=== PATIENT | female | born 1975 | race Caucasian/White ===

== ENCOUNTER 2016-10-17 12:17 | Emergency (ER) | payer OTHER, SELFPAY ==
[2016-10-17 12:28] VITALS: BP 134/79; PULSE 82; RESP 14; TEMP 98.9; O2SAT 99
--- NOTE | 2016-10-17 13:45 | ED PDOC ---
HPI: Back Time Seen by Provider: 10/17/16 12:52 Chief Complaint (Nursing): Back Pain Chief Complaint (Provider): Back pain History Per: Patient History/Exam Limitations: no limitations Onset/Duration Of Symptoms: Days (x1 month), Worse Since (x1 day) Current Symptoms Are (Timing): Still Present Additional Complaint(s): Peyton Beatty is a 41 year old female, with no past medical history, who presents to the emergency department complaining of right sided back pain onset for 1 month associated with a subjective fever. She states symptoms worsened last night which prompted her to take ibuprofen but without any alleviation of symptoms. No further medical complaints. PMD: None provided Past Medical History Reviewed: Historical Data, Nursing Documentation, Vital Signs Vital Signs: Last Vital Signs Temp 98.9 F 10/17/16 12:28 Pulse 82 10/17/16 12:28 Resp 14 10/17/16 12:28 BP 134/79 10/17/16 12:28 Pulse Ox 99 10/17/16 12:28 - Medical History PMH: No Chronic Diseases - Family History Family History: States: Unknown Family Hx - Social History Current smoker - smoking cessation education provided: No Alcohol: None Drugs: Denies - Home Medications Home Medications: Ambulatory Orders Medication Instructions Recorded Cyclobenzaprine [Cyclobenzaprine 10 mg PO Q8H #20 tab 10/17/16 HCl] Ibuprofen [Motrin Tab] 800 mg PO Q6H PRN #20 tab 10/17/16 - Allergies Allergies/Adverse Reactions: Allergies Allergy/AdvReac Type Severity Reaction Status Date / Time No Known Allergies Allergy Verified 06/01/14 09:23 Review of Systems ROS Statement: Except As Marked, All Systems Reviewed And Found Negative Constitutional: Positive for: Fever Musculoskeletal: Positive for: Back Pain (right sided) Physical Exam - Reviewed Nursing Documentation Reviewed: Yes Vital Signs Reviewed: Yes - Physical Exam Appears: Positive for: Well, Non-toxic, No Acute Distress Head Exam: Positive for: ATRAUMATIC, NORMAL INSPECTION, NORMOCEPHALIC Skin: Positive for: Normal Color, Warm, DRY Eye Exam: Positive for: Normal appearance Neck: Positive for: Normal Cardiovascular/Chest: Positive for: Regular Rate, Rhythm Respiratory: Positive for: Normal Breath Sounds. Negative for: Respiratory Distress Back: Positive for: R CVA Tenderness (per spinal muscles), Muscle Spasm. Negative for: Vertebral Tenderness Extremity: Positive for: Normal ROM Neurologic/Psych: Positive for: Alert, Oriented - ECG O2 Sat by Pulse Oximetry: 99 (RA) Pulse Ox Interpretation: Normal Medical Decision Making Medical Decision Making: Initial Impression: Initial Plan: --ED urine dipstick --ED urine --Motrin Tab 600 mg PO --Flexeril 10 mg PO --reevaluation Pt reports feeling better on re-evaluation. Urine normal. Scribe Attestation: Documented by Roger Felix, acting as a scribe for Fide LANGE. Provider Scribe Attestation: All medical record entries made by the Scribe were at my direction and personally dictated by me. I have reviewed the chart and agree that the record accurately reflects my personal performance of the history, physical exam, medical decision making, and the department course for this patient. I have also personally directed, reviewed, and agree with the discharge instructions and disposition. Disposition - Clinical Impression Clinical Impression: Back pain - Patient ED Disposition Is Patient to be Admitted: No Counseled Patient/Family Regarding: Diagnosis, Need For Followup, Rx Given - Disposition Disposition: Routine/Home Disposition Time: 14:21 Condition: GOOD Prescriptions: Cyclobenzaprine [Cyclobenzaprine HCl] 10 mg PO Q8H #20 tab Ibuprofen [Motrin Tab] 800 mg PO Q6H PRN #20 tab PRN Reason: Pain Instructions: Back Pain (ED)
== END 2016-10-17 14:43 | disposition home or self-care (01) ==
LOC: H.ER 12:17
DX: M54.9 Dorsalgia, unspecified (principal)

== ENCOUNTER 2017-08-30 09:57 | Emergency (ER) | payer SELFPAY ==
[2017-08-30 10:14] VITALS: BMI 29.5
[2017-08-30 10:16] VITALS: O2SAT 100
[2017-08-30 11:40] LABS: ALB/GLOB RATIO 1.2 (1.0-2.1); ALBUMIN 4.2 g/dL (3.5-5.0); ALT/SGPT 35 U/L (9-52); AST/SGOT 22 U/L (14-36); BLOOD UREA NITROGEN 10 mg/dl (7-17); GFR AFRICAN-AMERICAN > 60; GFR NON-AFRICAN AMERICAN > 60
--- NOTE | 2017-08-30 11:43 | ED PDOC ---
HPI: Chest Pain Time Seen by Provider: 08/30/17 10:27 Chief Complaint (Nursing): Chest Pain Chief Complaint (Provider): Chest Pain History Per: Patient History/Exam Limitations: no limitations Onset/Duration Of Symptoms: Persistent (x1 month) Current Symptoms Are (Timing): Still Present Additional Complaint(s): 42 year old female presents to the emergency department with a complaint of constant left-sided chest pain radiating to her neck, back and head ongoing for 1 month. She states there are no alleviating or exacerbating factors. Patient denies any cough, hemoptysis, fever, chills, trauma, dyspnea on exertion, leg pain, recent travel or surgery. No history of DVT or PE. PMD: Cruz Chambers MD Past Medical History Reviewed: Historical Data, Nursing Documentation, Vital Signs Vital Signs: Last Vital Signs Temp 97.8 F 08/30/17 10:15 Pulse 64 08/30/17 10:35 Resp 20 08/30/17 10:15 BP 126/87 08/30/17 10:15 Pulse Ox 100 08/30/17 12:31 - Medical History PMH: No Chronic Diseases Denies: Deep Vein Thrombosis, Pulmonary Embolism - Surgical History Surgical History: Denies: No Surg Hx Other surgeries: left breast biopsy - Family History Family History: States: [place] (uncle of [place] at 45 y/o) - Social History Current smoker - smoking cessation education provided: No Ex-Smoker (has not smoked in the last 12 months): No Alcohol: Social Drugs: Denies - Home Medications Home Medications: Ambulatory Orders Medication Instructions Recorded Cyclobenzaprine [Cyclobenzaprine 10 mg PO Q8H #20 tab 10/17/16 HCl] Ibuprofen [Motrin Tab] 800 mg PO Q6H PRN #20 tab 10/17/16 Naproxen [Naprosyn] 500 mg PO BID PRN #10 tab 08/30/17 - Allergies Allergies/Adverse Reactions: Allergies Allergy/AdvReac Type Severity Reaction Status Date / Time No Known Allergies Allergy Verified 06/01/14 09:23 SERGEY Risk Score for UA/NSTEMI - SERGEY Risk Score Age > 64: NO 3 or more CAD Risk Factors: NO Known CAD (Stenosis greater than 50%): NO Aspirin use in past 7 days: NO Severe Angina: NO EKG ST changes greater than 0.5mm: NO Positive Cardiac Marker: NO SERGEY Score: 0 Risk %: 5% Wells Criteria for PE - Wells Criteria for Pulmonary Embolism Clinical Signs and Symptoms of DVT: No P.E is #1 Diagnosis, or Equally Likely: No Heart Rate >100: No Immobilization at least 3 days;Surgery previous 4 weeks: No Previous, objectively diagnosed PE or DVT: No Hemoptysis: No Malignancy w/treatment within 6 months, or palliative: No Total Score: 0 Review of Systems ROS Statement: Except As Marked, All Systems Reviewed And Found Negative Constitutional: Negative for: Fever, Chills Cardiovascular: Positive for: Chest Pain (left-sided). Negative for: Other ( trauma) Respiratory: Negative for: Cough, Hemoptysis, SOB with Exertion Musculoskeletal: Positive for: Neck Pain, Back Pain. Negative for: Leg Pain ( bilaterally) Neurological: Positive for: Headache Physical Exam - Reviewed Nursing Documentation Reviewed: Yes Vital Signs Reviewed: Yes - Physical Exam Appears: Positive for: No Acute Distress Head Exam: Positive for: ATRAUMATIC, NORMAL INSPECTION, NORMOCEPHALIC Skin: Positive for: Normal Color, Warm, Dry. Negative for: Rash Cardiovascular/Chest: Positive for: Regular Rate, Rhythm. Negative for: Chest Non Tender, Murmur Respiratory: Positive for: Normal Breath Sounds. Negative for: Respiratory Distress Gastrointestinal/Abdominal: Positive for: Normal Exam, Soft. Negative for: Tenderness Back: Positive for: Normal Inspection. Negative for: L CVA Tenderness, R CVA Tenderness Neurologic/Psych: Positive for: Alert (x3), Oriented. Negative for: Motor/ Sensory Deficits - Laboratory Results Result Diagrams: 08/30/17 11:23 08/30/17 11:23 Urine POC: Negative - ECG ECG: Positive for: Interpreted By Me ECG Rhythm: Positive for: Sinus Rhythm. Negative for: ST/T Changes Rate: 63 O2 Sat by Pulse Oximetry: 100 (RA) Pulse Ox Interpretation: Normal - Radiology X-Ray: Interpreted by Me (CXR) X-Ray Interpretation: No Acute Disease Medical Decision Making Medical Decision Making: Initial Impression: Chest pain Initial Plan: * EKG * CMP * Troponin I * Urine * CBC * D Dimer * CXR * Aspirin 324mg PO ___ Time: 1220 --Labs: no significant abnormality. Time: 1230 On re-evaluation, pt. in no distress. Resting comfortably. Informed of results and advised to f/u with [facility] for further evaluation but is to return to ED immediately if symptoms worsen. Scribe Attestation: Documented by Avelina Amanda, acting as a scribe for Leonardo Weiss PA-C. Provider Scribe Attestation: All medical record entries made by the Scribe were at my direction and personally dictated by me. I have reviewed the chart and agree that the record accurately reflects my personal performance of the history, physical exam, medical decision making, and the department course for this patient. I have also personally directed, reviewed, and agree with the discharge instructions and disposition. Disposition - Clinical Impression Clinical Impression: Chest pain - Patient ED Disposition Is Patient to be Admitted: No - Disposition Referrals: [facility] [Outside] [facility] [Outside] Disposition: Routine/Home Disposition Time: 12:35 Condition: STABLE Additional Instructions: Follow up with [facility] for further evaluation. Return to ED immediately if symptoms worsen. Prescriptions: Naproxen [Naprosyn] 500 mg PO BID PRN #10 tab PRN Reason: Pain Instructions: Chest Pain (DC) Forms: [employer] (Moroccan) Print Language: NAMIBIAN
[2017-08-30 12:31] LABS: BASO # 0.1 K/uL (0.0-0.2); BASO % 0.8 % (0.0-2.0); EOS # 0.2 K/uL (0.0-0.7); EOS % 3.5 % (0.0-4.0); HEMOGLOBIN 12.6 g/dL (12.0-16.0); LYMPH # 2.3 K/uL (1.0-4.3); LYMPH % 37.3 % (20.0-40.0); MEAN CELL VOLUME 87.3 fl (81.0-99.0); MEAN CORPUSCULAR HEMOGLOBIN 29.7 pg (27.0-31.0); MEAN PLATELET VOLUME 9.6 fl (7.2-11.7); MONO # 0.3 K/uL (0.0-0.8); MONO % 4.8 % (0.0-10.0); NEUT # 3.3 K/uL (1.8-7.0); NEUT % 53.6 % (50.0-75.0); RBC 4.25 Mil/uL (3.80-5.20); RED CELL DISTRIBUTION WIDTH 13.3 % (11.5-14.5); WHITE BLOOD COUNT 6.2 K/uL (4.8-10.8)
[2017-08-30 13:49] VITALS: BP 118/77; PULSE 69; RESP 14; TEMP 97.9
--- NOTE | 2017-08-30 17:10 | RAD ---
HISTORY: chest pain COMPARISON: No prior. TECHNIQUE: Chest PA and lateral FINDINGS: LUNGS: No active pulmonary disease. PLEURA: No significant pleural effusion identified. No pneumothorax apparent. CARDIOVASCULAR: Normal. OSSEOUS STRUCTURES: No significant abnormalities. VISUALIZED UPPER ABDOMEN: Normal. OTHER FINDINGS: None. IMPRESSION: No acute cardiopulmonary disease appreciated.
--- NOTE | 2017-08-31 11:20 | CARD ---
APPROVED REPORT EKG Measurement Heart [id number] <Conclusion> Normal sinus rhythm Normal ECG
== END 2017-08-30 13:52 | disposition home or self-care (01) ==
LOC: H.ER 09:57
DX: R07.9 Chest pain, unspecified (principal); Z79.82 Long term (current) use of aspirin

== ENCOUNTER 2017-12-03 17:04 | Emergency (ER) | payer SELFPAY ==
[2017-12-03 17:04] VITALS: BMI 29.5
[2017-12-03] MEDS ORDERED: Iohexol 240 (50 ml) PO ONE (17:48)
[2017-12-03] MEDS ORDERED: Sodium Chloride 0.9% 1,000 ML IV STA ×2 (17:48→22:36)
--- NOTE | 2017-12-03 17:49 | ED PDOC ---
HPI: Abdomen Time Seen by Provider: 12/03/17 17:16 Chief Complaint (Nursing): Abdominal Pain Chief Complaint (Provider): abd pain History Per: Patient History/Exam Limitations: no limitations Onset/Duration Of Symptoms: Days (1 week) Additional Complaint(s): Pt. with abd pain diffuse for 1 week. Pt. with nausea, vomit and diarrhea nonbloody, weakness all over. Back pain across lower. No numbness, tingles, incontinence, constipation. No chest pain, dyspnea. Took zantac for symptoms. No recent travel or new food/drinks. No dysuria. Past Medical History Reviewed: Nursing Documentation, Vital Signs Vital Signs: Last Vital Signs Temp 100.2 F H 12/03/17 17:12 Pulse 126 H 12/03/17 17:12 Resp 16 12/03/17 17:12 BP 152/93 H 12/03/17 17:12 Pulse Ox 98 12/03/17 17:12 - Medical History PMH: No Chronic Diseases Denies: Deep Vein Thrombosis, Pulmonary Embolism - Family History Family History: States: Unknown Family Hx, [place] (uncle of [place] at 45 y/o) - Living Arrangements Living Arrangements: With Family - Home Medications Home Medications: Ambulatory Orders Medication Instructions Recorded Cyclobenzaprine [Cyclobenzaprine 10 mg PO Q8H #20 tab 10/17/16 HCl] Ibuprofen [Motrin Tab] 800 mg PO Q6H PRN #20 tab 10/17/16 Naproxen [Naprosyn] 500 mg PO BID PRN #10 tab 08/30/17 - Allergies Allergies/Adverse Reactions: Allergies Allergy/AdvReac Type Severity Reaction Status Date / Time No Known Allergies Allergy Verified 12/03/17 17:12 Review of Systems ROS Statement: Except As Marked, All Systems Reviewed And Found Negative Constitutional: Positive for: Weakness Gastrointestinal: Positive for: Nausea, Vomiting, Abdominal Pain, Diarrhea Musculoskeletal: Positive for: Back Pain Neurological: Positive for: Weakness Physical Exam - Reviewed Nursing Documentation Reviewed: Yes Vital Signs Reviewed: Yes - Physical Exam Appears: Positive for: Non-toxic, No Acute Distress Head Exam: Positive for: ATRAUMATIC, NORMAL INSPECTION, NORMOCEPHALIC Skin: Positive for: Normal Color, Warm, DRY Eye Exam: Positive for: EOMI, Normal appearance, PERRL ENT: Positive for: Normal ENT Inspection Neck: Positive for: Normal, Painless ROM Cardiovascular/Chest: Positive for: Regular Rate, Rhythm Respiratory: Positive for: CNT, Normal Breath Sounds Gastrointestinal/Abdominal: Positive for: Soft, Tenderness (diffuse) Back: Positive for: Normal Inspection. Negative for: L CVA Tenderness, R CVA Tenderness Extremity: Positive for: Normal ROM Neurologic/Psych: Positive for: Alert, Oriented - ECG O2 Sat by Pulse Oximetry: 98 Pulse Ox Interpretation: Normal - Progress ED Course And Treament: 1843: Dr. Linton to take over care and fu abd ct, labs. Disposition - Clinical Impression Clinical Impression: Abdominal pain - Patient ED Disposition Is Patient to be Admitted: Transfer of Care - Disposition Disposition: Transfer of Care Disposition Time: 18:44 Condition: FAIR Patient Signed Over To: Arden Linton
[2017-12-03 19:00] LABS: BASO % 0.2 % (0.0-2.0); EOS % 0.1 % (0.0-4.0); HEMOGLOBIN 12.9 g/dL (12.0-16.0); LYMPH # 0.8 K/uL (1.0-4.3); LYMPH % 7.8 % (20.0-40.0); MEAN CELL VOLUME 85.1 fl (81.0-99.0); MEAN CORPUSCULAR HEMOGLOBIN 29.7 pg (27.0-31.0); MEAN CORPUSCULAR HGB CONC 34.8 g/dL (33.0-37.0); MEAN PLATELET VOLUME 9.3 fl (7.2-11.7); MONO # 0.4 K/uL (0.0-0.8); MONO % 4.2 % (0.0-10.0); NEUT % 87.7 % (50.0-75.0); PLATELET COUNT 247 K/uL (130-400); RBC 4.35 Mil/uL (3.80-5.20); RED CELL DISTRIBUTION WIDTH 13.1 % (11.5-14.5); WHITE BLOOD COUNT 10.3 K/uL (4.8-10.8)
[2017-12-03 19:04] LABS: ALB/GLOB RATIO 1.3 (1.0-2.1); ALBUMIN 4.3 g/dL (3.5-5.0); ALT/SGPT 21 U/L (9-52); AST/SGOT 18 U/L (14-36); BLOOD UREA NITROGEN 5 mg/dl (7-17); CALCIUM 9.3 mg/dL (8.4-10.2); GFR NON-AFRICAN AMERICAN > 60; LIPASE 118 U/L (23-300)
[2017-12-03] MEDS ORDERED: Iohexol 240 (50 ml) ONE (19:19)
[2017-12-03 20:14] LABS: SQUAMOUS EPITHIAL 9 /hpf (0-5); URINE BACTERIA RARE (<OCC); URINE BILIRUBIN NEGATIVE (NEGATIVE); URINE BLOOD NEGATIVE (NEGATIVE); URINE CLARITY SLIGHTY-CLOUDY (Clear); URINE COLOR YELLOW (YELLOW); URINE GLUCOSE (UA) NEG (Normal); URINE LEUKOCYTE ESTERASE TRACE Leu/uL (Negative); URINE PROTEIN NEGATIVE (NEGATIVE); URINE UROBILINOGEN 0.2-1.0 mg/dL (0.2-1.0)
[2017-12-03 20:23] LABS: VENOUS BLOOD GAS BASE EXCESS 0.5 mmol/L (0.0-2.0); VENOUS BLOOD GAS PCO2 37 mmHg (40-60); VENOUS BLOOD GAS PO2 50 mm/Hg (30-55); VENOUS BLOOD PH 7.43 (7.32-7.43)
[2017-12-03 20:38] LABS: BANDS 2 % (0-2); LYMPHOCYTE 11 % (20-50); MONOCYTE 6 % (0-10); NEUTROPHIL 79 % (42-75); REACTIVE LYMPHOCYTES 2 % (0-0); TOTAL CELLS COUNTED 100
[2017-12-03 20:39] LABS: ANISOCYTOSIS SLIGHT; HYPOCHROMIC SLIGHT; MICROCYTOSIS SLIGHT; OVALOCYTES SLIGHT; PLATELET ESTIMATE NORMAL (NORMAL); SMUDGE CELLS PRESENT
[2017-12-03] MEDS ORDERED: Iohexol 300 100 ML IJ ONE (21:19)
[2017-12-03] MEDS ORDERED: Sodium Chloride 0.9% 50 ML IV ONE (21:19)
--- NOTE | 2017-12-03 22:28 | ED PDOC ---
- Laboratory Results Result Diagrams: 12/03/17 18:51 12/03/17 18:51 - ECG O2 Sat by Pulse Oximetry: 99 Medical Decision Making Medical Decision MakinPM Case endorsed to me by Dr. Bridges pending CT results 10PM CT shows enteritis Patient feeling better Vitals improved STrongly advised followup with PMD in 2 - 3 days for checkup Patient well appearing with normal vitals upon discharge Disposition - Clinical Impression Clinical Impression: Enteritis - POA Present On Arrival: None - Disposition Referrals: Cruz Chambers MD [Family Provider] - Disposition: Routine/Home Disposition Time: 22:29 Condition: IMPROVED Prescriptions: Ciprofloxacin [Cipro] 500 mg PO BID 7 Days tab Ibuprofen [Motrin Tab] 600 mg PO Q6 #30 tab metroNIDAZOLE [Flagyl] 500 mg PO BID 7 Days tab Instructions: Viral Gastroenteritis, Adult (DC) Print Language: THAI
[2017-12-03] MEDS ORDERED: Ciprofloxacin 400mg/200ml D5W 400 MG/200 ML BAG IVPB STA (22:36)
[2017-12-03] MEDS ORDERED: metroNIDAZOLE 500mg/100ml NS 100 ML IVPB STA (22:36)
[2017-12-03] MEDS ORDERED: metroNIDAZOLE 500mg/100ml NS 100 ML IVPB ONE (23:10)
[2017-12-03] MEDS ORDERED: Ciprofloxacin 400mg/200ml D5W 400 MG/200 ML BAG IVPB ONE (23:10)
[2017-12-04 01:57] VITALS: BP 106/50; RESP 16; TEMP 99.2
[2017-12-04 03:03] VITALS: PULSE 102; O2SAT 99
--- NOTE | 2017-12-04 13:39 | CT ---
Date of service: 12/03/2017 PROCEDURE: CT Abdomen and Pelvis with contrast HISTORY: abd pain COMPARISON: None. TECHNIQUE: Contrast dose: 90 mL Omnipaque 300 Radiation dose: Total exam DLP = 616.9 mGy-cm. This CT exam was performed using one or more of the following dose reduction techniques: Automated exposure control, adjustment of the mA and/or kV according to patient size, and/or use of iterative reconstruction technique. FINDINGS: LOWER THORAX: Unremarkable. LIVER: Unremarkable. No gross lesion or ductal dilatation. GALLBLADDER AND BILE DUCTS: Unremarkable. PANCREAS: Unremarkable. No gross lesion or ductal dilatation. SPLEEN: Unremarkable. ADRENALS: Unremarkable. No mass. KIDNEYS AND URETERS: Unremarkable. No hydronephrosis. No solid mass. VASCULATURE: Unremarkable. No aortic aneurysm. BOWEL: Mild transverse colonic wall thickening. No obstruction. No gross mural thickening. APPENDIX: Normal appendix. PERITONEUM: Unremarkable. No free fluid. No free air. LYMPH NODES: Unremarkable. No enlarged lymph nodes. BLADDER: Unremarkable. REPRODUCTIVE: 1.6 cm right ovarian follicle BONES: No acute fracture. OTHER FINDINGS: None. IMPRESSION: Mild transverse colitis, likely infectious/inflammatory. Dominant right ovarian follicle measuring 1.6 cm. Normal appendix.
== END 2017-12-04 03:10 | disposition home or self-care (01) ==
LOC: H.ER 17:04
DX: K52.9 Noninfective gastroenteritis and colitis, unspecified (principal)
CPT/HCPCS: 74177; 80053; 81003; 81025; 82803; 83690; 85025; 87040; 87086; 96361; 96365; 96367; 96375; 99285; J0744; J1885; J7030; Q9966; Q9967

== ENCOUNTER 2017-12-10 21:41 | Emergency (ER) | payer SELFPAY ==
[2017-12-10 21:41] VITALS: BMI 29.5
--- NOTE | 2017-12-10 22:56 | ED PDOC ---
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 Associated multiple vomiting and diarrhea episodes. Patient states she was seen in ED for same 12/03, was prescribed antibiotics which she is still taking, and states she was feeling better until tonight. Denies fever, cough, congestion, chest pain, shortness of breath, palpitations, urinary symptoms, recent travel, sick contacts. Past Medical History Reviewed: Historical Data, Nursing Documentation, Vital Signs Vital Signs: Last Vital Signs Temp 98.8 F 12/10/17 22:05 Pulse 84 12/10/17 22:05 Resp 16 12/10/17 22:05 BP 156/93 H 12/10/17 22:05 Pulse Ox 100 12/10/17 22:05 - Medical History PMH: No Chronic Diseases Denies: Deep Vein Thrombosis, Pulmonary Embolism - Surgical History Surgical History: No Surg Hx - Family History Family History: States: Unknown Family Hx, [place]uncle of [place] at 45 y/o) - Home Medications Home Medications: Ambulatory Orders Medication Instructions Recorded Cyclobenzaprine [Cyclobenzaprine 10 mg PO Q8H #20 tab 10/17/16 HCl] Ibuprofen [Motrin Tab] 800 mg PO Q6H PRN #20 tab 10/17/16 Naproxen [Naprosyn] 500 mg PO BID PRN #10 tab 08/30/17 Ciprofloxacin [Cipro] 500 mg PO BID 7 Days tab 12/03/17 Ibuprofen [Motrin Tab] 600 mg PO Q6 #30 tab 12/03/17 metroNIDAZOLE [Flagyl] 500 mg PO BID 7 Days tab 12/03/17 Dicyclomine [Bentyl] 20 mg PO TID PRN #15 tab 12/11/17 Ondansetron [Zofran] 4 mg PO Q8H PRN #10 tab 12/11/17 - Allergies Allergies/Adverse Reactions: Allergies Allergy/AdvReac Type Severity Reaction Status Date / Time No Known Allergies Allergy Verified 12/03/17 17:12 Review of Systems ROS Statement: Except As Marked, All Systems Reviewed And Found Negative Gastrointestinal: Positive for: Nausea, Vomiting, Abdominal Pain, Diarrhea Physical Exam - Reviewed Nursing Documentation Reviewed: Yes Vital Signs Reviewed: Yes - Physical Exam Appears: Positive for: Well, Non-toxic, No Acute Distress Head Exam: Positive for: ATRAUMATIC, NORMAL INSPECTION, NORMOCEPHALIC Skin: Positive for: Normal Color Eye Exam: Positive for: Normal appearance ENT: Positive for: Normal ENT Inspection Cardiovascular/Chest: Positive for: Regular Rate, Rhythm Respiratory: Positive for: Normal Breath Sounds Gastrointestinal/Abdominal: Positive for: Bowel Sounds, Soft, Tenderness (ruq, epigastric, luq) Back: Positive for: Normal Inspection Extremity: Positive for: Normal ROM Neurologic/Psych: Positive for: Alert, Oriented (x3) - Laboratory Results Result Diagrams: 12/10/17 23:09 12/10/17 23:09 - ECG O2 Sat by Pulse Oximetry: 100 - Progress ED Course And Treament: CT from 12/03 reviewed, showed mild colitis will check labs, urine, IV fluids, give IV zofran, IV pepcid, PO bentyl, IV toradol On re-eval, patient tolerating PO, states she is feeling better Patient educated on findings, discharged with rx Zofran, Bentyl Advised follow up PMD/GI Continue antibiotics Return precautions given Patient with small leuks on u/a, denies urinary symptoms, already on Cipro Will await C&S Disposition - Clinical Impression Clinical Impression: Abdominal discomfort, Vomiting and diarrhea - Patient ED Disposition Is Patient to be Admitted: No Counseled Patient/Family Regarding: Studies Performed, Diagnosis, Need For Followup, Rx Given - Disposition Referrals: [facility] [Outside] Disposition: Routine/Home Disposition Time: 02:46 Condition: IMPROVED Prescriptions: Dicyclomine [Bentyl] 20 mg PO TID PRN #15 tab PRN Reason: Pain, Mild (1-3) Ondansetron [Zofran] 4 mg PO Q8H PRN #10 tab PRN Reason: Nausea/Vomiting Instructions: Diarrhea in Adolescents and Adults, Acute Abdomen (Belly Pain), Nausea and Vomiting, Adult (DC) Print Language: ISRAELI
[2017-12-10 23:13] LABS: BASO % 0.4 % (0.0-2.0); EOS # 0.1 K/uL (0.0-0.7); EOS % 0.8 % (0.0-4.0); HEMOGLOBIN 12.2 g/dL (12.0-16.0); LYMPH # 1.9 K/uL (1.0-4.3); LYMPH % 17.4 % (20.0-40.0); MEAN CELL VOLUME 85.1 fl (81.0-99.0); MEAN CORPUSCULAR HEMOGLOBIN 29.2 pg (27.0-31.0); MEAN CORPUSCULAR HGB CONC 34.3 g/dL (33.0-37.0); MEAN PLATELET VOLUME 8.3 fl (7.2-11.7); MONO # 0.4 K/uL (0.0-0.8); MONO % 3.3 % (0.0-10.0); NEUT # 8.7 K/uL (1.8-7.0); NEUT % 78.1 % (50.0-75.0); RBC 4.18 Mil/uL (3.80-5.20); RED CELL DISTRIBUTION WIDTH 13.1 % (11.5-14.5); WHITE BLOOD COUNT 11.1 K/uL (4.8-10.8)
[2017-12-10 23:23] LABS: SQUAMOUS EPITHIAL 5 /hpf (0-5); URINE BILIRUBIN NEGATIVE (NEGATIVE); URINE BLOOD NEGATIVE (NEGATIVE); URINE CLARITY SLIGHTY-CLOUDY (Clear); URINE COLOR YELLOW (YELLOW); URINE GLUCOSE (UA) NEG (Normal); URINE LEUKOCYTE ESTERASE SMALL Leu/uL (Negative); URINE PROTEIN 30 mg/dL (NEGATIVE); URINE UROBILINOGEN 0.2-1.0 mg/dL (0.2-1.0)
[2017-12-10 23:42] LABS: ALB/GLOB RATIO 1.2 (1.0-2.1); ALBUMIN 4.3 g/dL (3.5-5.0); ALT/SGPT 25 U/L (9-52); AST/SGOT 22 U/L (14-36); BLOOD UREA NITROGEN 11 mg/dl (7-17); CALCIUM 9.1 mg/dL (8.4-10.2); GFR NON-AFRICAN AMERICAN > 60; LIPASE 384 U/L (23-300)
[2017-12-11] MEDS ORDERED: Sodium Chloride 0.9% 1,000 ML IV STA (01:08)
[2017-12-11 04:48] VITALS: BP 132/85; PULSE 77; RESP 18; TEMP 98.3; O2SAT 99
== END 2017-12-11 03:10 | disposition home or self-care (01) ==
LOC: H.ER 21:41
DX: R10.10 Upper abdominal pain, unspecified (principal); R11.10 Vomiting, unspecified; R19.7 Diarrhea, unspecified
CPT/HCPCS: 80053; 81003; 81025; 83690; 85025; 87086; 96374; 99284; J1885; J2405; J7030